=== PATIENT | male | born 1955 | race Caucasian/White ===

== ENCOUNTER 2020-07-20 12:04 | Emergency (ER) | payer OTHER ==
[~2020-07-20] VITALS: Ht 167.6 cm; Wt 73.9 kg
[2020-07-20 12:22] VITALS: Ht 167.6 cm; Wt 73.9 kg
[2020-07-20 15:11] VITALS: BP 144/79
== END 2020-07-20 15:11 | disposition home or self-care (01) ==
LOC: ED 12:04
DX: S13.8XXA Sprain of joints and ligaments of other parts of neck, initial encounter (principal); E11.9 Type 2 diabetes mellitus without complications; S09.8XXA Other specified injuries of head, initial encounter; W20.8XXA Other cause of strike by thrown, projected or falling object, initial encounter; Y93.89 Activity, other specified; Y92.89 Other specified places as the place of occurrence of the external cause; Y99.8 Other external cause status